=== PATIENT | male | born 1985 | race Caucasian/White ===

== ENCOUNTER 2020-08-05 11:29 | Outpatient (CLI) | payer BC, SELFPAY ==
--- NOTE | ~2020-08-05 | XR_ITS ---
XR shoulder LT min 2V 08/05/2020 11:58 INDICATION: Left shoulder pain PROCEDURE: 4 views left shoulder COMPARISON: No prior studies for comparison. FINDINGS: Fracture, dislocation or subluxation is not identified. There are calcified granulomas in t he lung parenchyma. The soft tissues appear within normal limits. No foreign bodies are identified. IMPRESSION: 1: NO ACUTE BONE OR JOINT ABNORMALITY IDENTIFIED. Reviewed, dictated and finalized at location A.
--- NOTE | ~2020-08-05 | XR_ITS ---
EXAMINATION: XR hand RT 2V EXAM DATE: 08/05/2020 11:59 INDICATION: Right hand pain. TECHNIQUE: Frontal and lateral projections of the right hand. There is no prior study for compariso n. FINDINGS: There are no acute fractures or dislocations identified. There is no subcutaneous gas. Th e soft tissue is unremarkable. There are no radiopaque foreign bodies. There are no bony erosions identified. IMPRESSION: 1. Unremarkable XR hand RT 2V exam. Reviewed, dictated and finalized at location B.
== END 2020-08-05 11:30 | disposition home or self-care (01) ==
DX: M79.641 Pain in right hand (principal); M75.42 Impingement syndrome of left shoulder
CPT/HCPCS: 73030; 73120